=== PATIENT | female | born 1980 | race African-American/Black ===

== ENCOUNTER 2016-10-14 18:23 | Emergency (ER) | payer MEDICAID, OTHER ==
[~2016-10-14] VITALS: Ht 177.8 cm; Wt 73.5 kg
[~2016-10-14 18:23] MED LIST: MOTRIN800 MG PO; OMEPRAZOLE DR20 M1 PO; PENICILLIN PO; TRAMADOL50 MG PO; ZOFRAN ODT4 MG PO
[2016-10-14 18:55] VITALS: BP 111/69
--- NOTE | 2016-10-14 19:35 | NUR ---
36 Y/O F W/C/O MOUTH ABCESS X TODAY. DENIES FEVER OR CHILLS.
[2016-10-14 20:11] VITALS: BP 104/64
--- NOTE | 2016-10-14 20:11 | NUR ---
Patient discharged with v/s stable. Written and verbal after care instructions given and explained. Patient alert, oriented and verbalized understanding of instructions. Ambulatory with steady gait. All questions addressed prior to discharge. ID band removed. Patient advised to follow up with PMD TOMORROW. Rx of NORCO, AUGMENTIN, AND IBUPROFEN given. Patient educated on indication of medication including possible reaction and side effects. Opportunity to ask questions provided and answered.
== END 2016-10-14 19:35 | disposition home or self-care (01) ==
LOC: MED 18:23
DX: K02.9 Dental caries, unspecified (principal); K04.7 Periapical abscess without sinus; F12.90 Cannabis use, unspecified, uncomplicated

== ENCOUNTER 2016-12-23 10:46 | Emergency (ER) | payer SELFPAY ==
--- NOTE | 2016-12-23 11:54 | NUR ---
PT CALLED AT THE LOBBY BUT DID NOT ANSWER, LEFT WITHOUT BEING SEEN, NOTIFIED
== END 2016-12-23 11:54 | disposition left against medical advice (07) ==
LOC: MED 10:46
DX: Z53.21 Procedure and treatment not carried out due to patient leaving prior to being seen by health care provider (principal)

== ENCOUNTER 2017-08-08 19:02 | Emergency (ER) | payer OTHER ==
[~2017-08-08] VITALS: Ht 177.8 cm; Wt 85.0 kg
[2017-08-08 19:31] VITALS: BP 101/61
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
--- NOTE | 2017-08-08 21:05 | NUR ---
Patient discharged with v/s stable. Written and verbal after care instructions given and explained. Patient alert, oriented and verbalized understanding of instructions. Ambulatory with steady gait. All questions addressed prior to discharge. ID band removed. Patient advised to follow up with PMD. Rx of IBUPOFEN given. Patient educated on indication of medication including possible reaction and side effects. Opportunity to ask questions provided and answered.
[2017-08-08 21:14] VITALS: BP 102/75
== END 2017-08-08 21:05 | disposition home or self-care (01) ==
LOC: MED 19:02
DX: M25.562 Pain in left knee (principal)
CPT/HCPCS: 73562; 99284

== ENCOUNTER 2017-08-30 17:56 | Emergency (ER) | payer OTHER ==
[~2017-08-30] VITALS: Ht 177.8 cm; Wt 84.4 kg
[2017-08-30 18:03] VITALS: BP 106/55
--- NOTE | 2017-08-30 18:06 | NUR ---
PT AMBULATED TO CHAIR D.
--- NOTE | 2017-08-30 18:09 | NUR ---
37F BIB SELF C/O INTERMITTENT LEFT KNEE PAIN, SHARP, NON-RADIATING, 8/10 X 6 MONTHS; PT STATES NO TRAUMA OR INJURY TO SITE AT THIS TIME; NO SWELLING NOTED TO SITE AT THIS TIME; LEFT POPLITEAL PULSE 3+, LEFT CAP REFILL < 2 SECONDS, NO LOSS OF SENSATION TO LEFT LEG AT THIS TIME; PT AA&OX4, BL LUNG SOUNDS CLEAR, RR EVEN/UNLABORED, SKIN IS WARM/DRY/INTACT WITH EVEN AND STEADY GAIT; PT RESTING IN CHAIR, POSITIONED FOR COMFORT; ER MD MADE AWARE OF STATUS. WILL CONTINUE TO MONITOR.
--- NOTE | 2017-08-30 19:08 | NUR ---
CARO HUBBARD DR. SECHRIST EVALUATING PT AT THIS TIME.
--- NOTE | 2017-08-30 19:08 | NUR ---
Pt report given to FARZANA CHAPA. Transfer of care at this time.
[2017-08-30 19:37] VITALS: BP 109/75
--- NOTE | 2017-08-30 19:37 | NUR ---
Patient discharged with v/s stable. Written and verbal after care instructions given and explained. Patient alert, oriented and verbalized understanding of instructions. Ambulatory with steady gait. All questions addressed prior to discharge. ID band removed. Patient advised to follow up with PMD. Rx of MOTRIN 600MG given. Patient educated on indication of medication including possible reaction and side effects. Opportunity to ask questions provided and answered.
== END 2017-08-30 19:37 | disposition home or self-care (01) ==
LOC: MED 17:56
DX: M17.12 Unilateral primary osteoarthritis, left knee (principal); F12.10 Cannabis abuse, uncomplicated
CPT/HCPCS: 99283

== ENCOUNTER 2017-09-13 04:35 | Emergency (ER) | payer OTHER ==
[~2017-09-13] VITALS: Ht 177.8 cm; Wt 86.2 kg
[2017-09-13 04:42] VITALS: BP 111/71
--- NOTE | 2017-09-13 04:47 | NUR ---
PT BIB SELF C/O LT LOWER JAW/TOOTHACHE X OFF AND ON X 1MTH. PT DENIES N/V/D; SKIN IS INTACT, PINK/WARM/DRY; AAOX4, PERRL, WITH EVEN AND STEADY GAIT; LUNGS CLEAR BL, BREATHING UNLABORED; HR EVEN AND REGULAR, BL PERIPHERAL PULSES PRESENT; BS ACTIVE X4, NO TENDERNESS TO PALPATION. PT DENIES ANY FEVER, CP, SOB, OR COUGH AT THIS TIME; PT STATES 8/10 PAIN AT THIS TIME; VSS; PATIENT POSITIONED FOR COMFORT; HOB ELEVATED; BEDRAILS UP X2; BED DOWN.
--- NOTE | 2017-09-13 04:51 | NUR ---
ER MD DR PRECIADO AT BEDSIDE
[2017-09-13 05:06] VITALS: BP 121/75
--- NOTE | 2017-09-13 05:06 | NUR ---
Patient discharged with v/s stable. Written and verbal after care instructions given and explained. Patient alert, oriented and verbalized understanding of instructions. Ambulatory with steady gait. All questions addressed prior to discharge. ID band removed. Patient advised to follow up with PMD. Rx of NAPROSYN 500MG, PENICILLIN VK 500MG AND NORCO 4MG-325MG given. Patient educated on indication of medication including possible reaction and side effects. Opportunity to ask questions provided and answered.
== END 2017-09-13 05:06 | disposition home or self-care (01) ==
LOC: MED 04:35
DX: K08.89 Other specified disorders of teeth and supporting structures (principal); F17.210 Nicotine dependence, cigarettes, uncomplicated
CPT/HCPCS: 99283

== ENCOUNTER 2018-01-10 18:16 | Emergency (ER) | payer SELFPAY ==
[~2018-01-10] VITALS: Ht 177.8 cm; Wt 81.6 kg
[2018-01-10 18:21] VITALS: BP 110/72
--- NOTE | 2018-01-10 18:21 | NUR ---
PT AMBULATES TO BED 12
--- NOTE | 2018-01-10 18:31 | NUR ---
PATIENT PRESENTS TO ED WITH left lower molar pain . PT STATES . DENIES N/V/D; SKIN IS PINK/WARM/DRY; AAOX4 WITH EVEN AND STEADY GAIT; LUNGS CLEAR BL; HR EVEN AND REGULAR; PT DENIES ANY FEVER, CP, SOB, OR COUGH AT THIS TIME; PATIENT STATES PAIN OF 9/10 AT THIS TIME; VSS; PATIENT POSITIONED FOR COMFORT; HOB ELEVATED; BEDRAILS UP X2; BED DOWN. ER MD MADE AWARE OF PT STATUS.
--- NOTE | 2018-01-10 19:03 | NUR ---
RECEIVED REPORT FROM TIFFANIE YANES.
--- NOTE | 2018-01-10 19:05 | NUR ---
WENT TO SEE PT UPON START OF SHIFT. PT CALLED X3. PT NOTED TO HAVE LEFT WITHOUT BEING SEEN.
--- NOTE | 2018-01-10 19:05 | NUR ---
PATIENT LEFT WITHOUT BEING SEEN BY DR. DR COUGHLIN. NO FURTHER CARE PROVIDED FOR PATIENT.
== END 2018-01-10 19:05 | disposition left against medical advice (07) ==
LOC: MED 18:16
DX: Z53.21 Procedure and treatment not carried out due to patient leaving prior to being seen by health care provider (principal)

== ENCOUNTER 2018-10-20 13:36 | Emergency (ER) | payer OTHER ==
[~2018-10-20] VITALS: Ht 177.8 cm; Wt 77.8 kg
[2018-10-20 13:50] VITALS: BP 117/64
--- NOTE | 2018-10-20 13:55 | NUR ---
PT BIB SELF C/O PAINFUL ABSCESS IN BETWEEN BREASTS X 4 DAYS. TENDER TO TOUCH. SMALL PINK WOUND NOTED. PAIN 3. ER MD AT BEDSIDE FOR EVAL. HX: ANEMIA RX: IRON
[2018-10-20 14:25] VITALS: BP 111/62
--- NOTE | 2018-10-20 14:29 | NUR ---
Patient discharged with v/s stable. Written and verbal after care instructions given and explained. Patient alert, oriented and verbalized understanding of instructions. Ambulatory with steady gait. All questions addressed prior to discharge. ID band removed. Patient advised to follow up with PMD. Rx of IBU,KEFLEX given. Patient educated on indication of medication including possible reaction and side effects. Opportunity to ask questions provided and answered.
== END 2018-10-20 14:29 | disposition home or self-care (01) ==
LOC: MED 13:36
DX: N61.1 Abscess of the breast and nipple (principal)
CPT/HCPCS: 99283

== ENCOUNTER 2018-11-12 08:13 | Emergency (ER) | payer OTHER ==
[~2018-11-12] VITALS: Ht 177.8 cm; Wt 77.1 kg
[2018-11-12 08:22] VITALS: BP 117/89
--- NOTE | 2018-11-12 08:22 | NUR ---
PT TAKEN TO BED 8.
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
[2018-11-12] MEDS ORDERED: KETOROLAC 30 MG/ML VIAL IM ONE (08:55)
--- NOTE | 2018-11-12 09:35 | NUR ---
PT STAYING IN BED, STATED PAIN RELIEVED.
[2018-11-12 10:18] VITALS: BP 115/78
--- NOTE | 2018-11-12 10:19 | NUR ---
Patient discharged with v/s stable. Written and verbal after care instructions given and explained. Patient alert, oriented and verbalized understanding of instructions. Ambulatory with CRUTCHES, OFFERED PT WHEELCHAIR, PT REFUSED. All questions addressed prior to discharge. ID band removed. Patient advised to follow up with PMD. Rx of NAPROSYN given. Patient educated on indication of medication including possible reaction and side effects. Opportunity to ask questions provided and answered.
== END 2018-11-12 10:19 | disposition home or self-care (01) ==
LOC: MED 08:13
DX: S83.91XA Sprain of unspecified site of right knee, initial encounter (principal); V49.09XA Driver injured in collision with other motor vehicles in nontraffic accident, initial encounter; Y93.89 Activity, other specified; Y92.410 Unspecified street and highway as the place of occurrence of the external cause; Y99.8 Other external cause status
CPT/HCPCS: 29505; 73562; 81025; 96372; 99283; J1885; 81002; 96374

== ENCOUNTER 2019-03-30 09:39 | Emergency (ER) | payer OTHER ==
[~2019-03-30] VITALS: Ht 177.8 cm; Wt 88.0 kg
[2019-03-30 09:42] VITALS: BP 105/64
--- NOTE | 2019-03-30 09:48 | NUR ---
Patient ambulated to bed 7. RN evaluating patient at bedside.
--- NOTE | 2019-03-30 09:56 | NUR ---
PT BROKE TOOTH ON LT LOWER JAW X 2 DAYS S/P EATING AN ONION RING. 01/16 THRBING PAIN RADIATING TO LT ANTERIOR NECK AT 01/16, TX W/ IBUPROFEN W/ NO RELIEF. + SWELLING, - FEVER, -N/V. PT STATES SHE FEELS AN ABSCESS IN GUM LINE ON LT LOWER JAW. VSS. ER TO SEE PT. MEDHX:DENIES RX:DENIES
--- NOTE | 2019-03-30 10:10 | NUR ---
Dr. Mendoza evaluating patient at bedside.
--- NOTE | 2019-03-30 10:18 | NUR ---
Patient discharged with v/s stable. Written and verbal after care instructions given and explained. Patient alert, oriented and verbalized understanding of instructions. Ambulatory with steady gait. All questions addressed prior to discharge. ID band removed. Patient advised to follow up with PMD. Rx of PENICILLIN, NAPROSYN, NORCO given. Patient educated on indication of medication including possible reaction and side effects. Opportunity to ask questions provided and answered.
== END 2019-03-30 10:18 | disposition home or self-care (01) ==
LOC: MED 09:39
DX: K04.7 Periapical abscess without sinus (principal); F17.200 Nicotine dependence, unspecified, uncomplicated; F12.90 Cannabis use, unspecified, uncomplicated; Z98.890 Other specified postprocedural states
CPT/HCPCS: 99283

== ENCOUNTER 2019-07-22 17:43 | Emergency (ER) | payer OTHER ==
[~2019-07-22] VITALS: Ht 177.8 cm; Wt 92.1 kg
[2019-07-22 18:00] VITALS: BP 103/69
[2019-07-22] MEDS ORDERED: ACETAMINOPHEN EXTRA STRENGTH 500 MG TAB PO ONE (19:30)
--- NOTE | 2019-07-22 19:35 | NUR ---
C/O BILAT KNEE/ELBOW PAIN. PT REPORTS "TWISTING HER R KNEE YESTERDAY, BUT ASIDE FROM THAT SHE ALWAYS HAS JOINT PAIN 12/16. NO OBVIOUS DEFORMITY NOTED. CMS INTACT. PT SITTING IN CHAIR B AT THIS TIME.
[2019-07-22] MEDS ORDERED: KETOROLAC 60 MG/2 ML VIAL IM ONE ×2 (19:40→20:05)
--- NOTE | 2019-07-22 19:40 | NUR ---
PA TAYLOR EVALUATING PT AT THIS TIME
--- NOTE | 2019-07-22 19:48 | NUR ---
PT RETURN FROM RAD
--- NOTE | 2019-07-22 20:28 | NUR ---
PT DID NOT WANT ZANA WRAP
[2019-07-22 20:30] VITALS: BP 103/69
== END 2019-07-22 20:30 | disposition home or self-care (01) ==
LOC: MED 17:43
DX: G89.29 Other chronic pain (principal); M25.561 Pain in right knee
CPT/HCPCS: 73562; 96372; 99283; J1885

== ENCOUNTER 2019-08-09 16:28 | Emergency (ER) | payer MEDICAID, OTHER ==
[~2019-08-09] VITALS: Ht 177.8 cm; Wt 90.7 kg
[2019-08-09 16:38] VITALS: BP 101/73
--- NOTE | 2019-08-09 16:42 | NUR ---
TRIAGE COMPLETE. VSS. TO LOBBY AWAITNG BED IN ED.
--- NOTE | 2019-08-09 17:47 | NUR ---
39 Y/O PRESENTS TO ER WITH LEFT FOOT TOE PAIN, AT THE PINKY TOE. PT REPORTS STUBBING TOE TWO DAYS AGO AND STUBBING IT AGAIN YESTERDAY. PT HAS BEEN MANAGING PAIN WITH TYLENOL AT HOME BUT PAIN IS STILL PRESENT. MILD SWELLING NOTED, SKIN INTACT. NO OBVIOUS DEFORMITY NOTED. ROM IN TACT LOWER BILAT EXT, CMS+. NO PMH NKA
[2019-08-09] MEDS ORDERED: IBUPROFEN 600 MG TAB PO ONE (19:05)
[2019-08-09 19:50] VITALS: BP 101/73
--- NOTE | 2019-08-09 19:50 | NUR ---
Patient discharged with v/s stable. Written and verbal after care instructions given and explained. Patient alert, oriented and verbalized understanding of instructions. Ambulatory with steady gait. All questions addressed prior to discharge. ID band removed. Patient advised to follow up with PMD. Rx of IBUPROFEN WAS given. Patient educated on indication of medication including possible reaction and side effects. Opportunity to ask questions provided and answered. SPLINT WAS PLACED AND PT TOLERATED WELL.
== END 2019-08-09 19:50 | disposition home or self-care (01) ==
LOC: MED 16:28
DX: S92.522A Displaced fracture of middle phalanx of left lesser toe(s), initial encounter for closed fracture (principal); X58.XXXA Exposure to other specified factors, initial encounter; Y93.89 Activity, other specified; Y92.89 Other specified places as the place of occurrence of the external cause; Y99.8 Other external cause status
CPT/HCPCS: 73660; 99283

== ENCOUNTER 2019-11-26 05:59 | Emergency (ER) | payer MEDICAID, OTHER ==
[~2019-11-26] VITALS: Ht 177.8 cm; Wt 89.8 kg
[2019-11-26 06:04] VITALS: BP 109/75
--- NOTE | 2019-11-26 06:11 | NUR ---
PT TAKEN TO BED 12 VIA W/C
[2019-11-26] MEDS ORDERED: HYDROcodone/APAP 5/325 MG 1 TAB TAB PO ONE (06:20)
--- NOTE | 2019-11-26 06:20 | NUR ---
Dr. Mabry examining patient.
--- NOTE | 2019-11-26 06:30 | NUR ---
X-RAY AT BEDSIDE
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
--- NOTE | 2019-11-26 07:07 | NUR ---
REPORT GIVEN TO VEE YANES
[2019-11-26 07:24] VITALS: BP 109/75
--- NOTE | 2019-11-26 07:24 | NUR ---
Patient discharged with v/s stable. Written and verbal after care instructions given and explained. Patient alert, oriented and verbalized understanding of instructions. Ambulatory with steady gait. All questions addressed prior to discharge. ID band removed. Patient advised to follow up with PMD. Rx of NORCO, LIDODERM given. Patient educated on indication of medication including possible reaction and side effects. Opportunity to ask questions provided and answered.
== END 2019-11-26 07:24 | disposition home or self-care (01) ==
LOC: MED 05:59
DX: M25.571 Pain in right ankle and joints of right foot (principal)
CPT/HCPCS: 73610; 99283; Q0092

== ENCOUNTER 2021-01-03 12:11 | Emergency (ER) | payer OTHER ==
[~2021-01-03] VITALS: Ht 177.8 cm; Wt 93.4 kg
[2021-01-03 12:18] VITALS: BP 128/101
--- NOTE | 2021-01-03 12:25 | NUR ---
pt ambulated to bed 07.
--- NOTE | 2021-01-03 12:26 | NUR ---
Dr. Perez at the bedside evaluating patient.
--- NOTE | 2021-01-03 12:32 | NUR ---
Radiology at the bedside
[2021-01-03] MEDS ORDERED: KETOROLAC 30 MG/ML VIAL IM ONE (12:35)
--- NOTE | 2021-01-03 12:46 | NUR ---
40 Y/O F BIB SELF FROM HOME, C/O SHARP (R) FOOT PAIN AFTER HITTING FOOT AGAINST WALL TODAY. PAIN IS 10/10. PT STATES SHE HAS NO FEELING IN HER 5TH DIGIT R FOOT, PAIN WITH AMBULATION. PMH: DENIES NKA MED: IBUPROFEN 800MG NO RELIEF THIS MORNING.
[2021-01-03] MEDS ORDERED: IBUP-2230 PO (13:45)
[2021-01-03 14:08] VITALS: BP 128/101
[2021-01-04] MEDS ORDERED: ACET-8386 PO (00:52)
== END 2021-01-03 14:08 | disposition home or self-care (01) ==
LOC: MED 12:11
DX: S92.591A Other fracture of right lesser toe(s), initial encounter for closed fracture (principal); Z79.899 Other long term (current) drug therapy; X58.XXXA Exposure to other specified factors, initial encounter; Y93.89 Activity, other specified; Y92.89 Other specified places as the place of occurrence of the external cause; Y99.8 Other external cause status
CPT/HCPCS: 73660; 96372; 99283; J1885

== ENCOUNTER 2021-01-03 23:15 | Emergency (ER) | payer OTHER ==
[~2021-01-03] VITALS: Ht 177.8 cm; Wt 93.0 kg
[~2021-01-03 23:15] MED LIST changes: +IBUP-2230 PO; -MOTRIN800 MG PO; -OMEPRAZOLE DR20 M1 PO; -PENICILLIN PO; -TRAMADOL50 MG PO; -ZOFRAN ODT4 MG PO
[2021-01-03 23:33] VITALS: BP 135/88
--- NOTE | 2021-01-03 23:37 | NUR ---
PT TAKEN TO BED 3
[2021-01-03] MEDS ORDERED: KETOROLAC 60 MG/2 ML VIAL IM ONE (23:45)
--- NOTE | 2021-01-03 23:45 | NUR ---
RECEIVED IN BED 3 WITH C/O RIGHT 5TH TOE PAIN AFTER RUNNING INTO WALL, BARE FOTTED THIS AM. WAS SEEN HERE EARLIER TODAY AND WAS GIVEN MOTRIN RX. "THE PAIN MED ISN'T WORKING" PMH : NONE NKDA
[2021-01-03 23:59] VITALS: BP 128/74
--- NOTE | 2021-01-04 00:43 | NUR ---
Dr. Huggins examining patient.
[2021-01-04] MEDS ORDERED: ACET-8386 PO (00:52)
--- NOTE | 2021-01-04 00:58 | NUR ---
Patient discharged with v/s stable. TOE CAMPOS TAPED AND CAST SHOE IN PLACE Written and verbal after care instructions given and explained. Patient verbalized understanding. Ambulatory with steady gait. All questions addressed prior to discharge. Advised to follow up with PMD.
== END 2021-01-04 00:58 | disposition home or self-care (01) ==
LOC: MED 23:15
DX: S92.502A Displaced unspecified fracture of left lesser toe(s), initial encounter for closed fracture (principal); F12.90 Cannabis use, unspecified, uncomplicated; Z79.899 Other long term (current) drug therapy; Z98.890 Other specified postprocedural states; W22.01XA Walked into wall, initial encounter; Y93.89 Activity, other specified; Y92.89 Other specified places as the place of occurrence of the external cause; Y99.8 Other external cause status
CPT/HCPCS: 96372; 99283; J1885

== ENCOUNTER 2021-03-25 13:18 | Emergency (ER) | payer OTHER ==
[~2021-03-25] VITALS: Ht 180.3 cm; Wt 90.0 kg
[~2021-03-25 13:18] MED LIST changes: +ACET-8386 PO
[2021-03-25 13:40] VITALS: BP 158/94
--- NOTE | 2021-03-25 13:46 | NUR ---
PT AMB TO ER BED 12, UA CUP GIVEN
--- NOTE | 2021-03-25 13:55 | NUR ---
40 Y/O FEMALE C/O LT UPPER TOOTHACHE 03/18 DESCRIBES ACHE WITH N/V X 3 DAYS. PT TOOK MOMS ANTIBIOTICS & NARCOTICS BUT VOMITED THEM UP. DENIES FEVER/CHILLS. DENIES PMH NKA
[2021-03-25] MEDS ORDERED: HYDROcodone/APAP 5/325 MG 1 TAB TAB PO ONE (14:00)
--- NOTE | 2021-03-25 14:03 | NUR ---
PO PAIN MEDS GIVEN-NADR AT THIS TIME. ER/PA AT BEDSIDE FOR EVAL
[2021-03-25] MEDS ORDERED: AMOX-1000 PO (14:32)
[2021-03-25] MEDS ORDERED: ACET-8386 PO (14:32)
[2021-03-25 14:50] VITALS: BP 146/87
--- NOTE | 2021-03-25 14:50 | NUR ---
Patient discharged with v/s stable. Written and verbal after care instructions given and explained. Patient alert, oriented and verbalized understanding of instructions. Ambulatory with steady gait. All questions addressed prior to discharge. ID band removed. Patient advised to follow up with PMD. Rx of BACTRIM AND NORCO given. Patient educated on indication of medication including possible reaction and side effects. Opportunity to ask questions provided and answered.
== END 2021-03-25 14:50 | disposition home or self-care (01) ==
LOC: MED 13:18
DX: K08.89 Other specified disorders of teeth and supporting structures (principal); Z79.899 Other long term (current) drug therapy; Z98.890 Other specified postprocedural states
CPT/HCPCS: 81002; 81025; 99283

== ENCOUNTER 2021-06-05 11:09 | Emergency (ER) | payer OTHER ==
[~2021-06-05] VITALS: Ht 177.8 cm; Wt 91.6 kg
[~2021-06-05 11:09] MED LIST changes: +AMOX-1000 PO
[2021-06-05 11:16] VITALS: BP 137/82
--- NOTE | 2021-06-05 11:23 | NUR ---
pt swabbed for joão and flu
[2021-06-05] MEDS ORDERED: PROM473S5 PO (12:16)
[2021-06-05] MEDS ORDERED: ACET-10509 PO (12:16)
--- NOTE | 2021-06-05 14:06 | NUR ---
NO NURISNG INTERVENTIONS PROVIDED
[2021-06-05 14:07] VITALS: BP 137/82
--- NOTE | 2021-06-05 14:07 | NUR ---
Patient discharged with v/s stable. Written and verbal after care instructions ABOUT UPPER RESPIRATORY INFECTION AND COVID-19 given and explained. Patient alert, oriented and verbalized understanding of instructions. Ambulatory with steady gait. All questions addressed prior to discharge. ID band removed. Patient advised to follow up with PMD. Rx of TYLENOL EXTRA STRENGTH AND PROMETHAZINE given. Patient educated on indication of medication including possible reaction and side effects. Opportunity to ask questions provided and answered.
== END 2021-06-05 14:07 | disposition home or self-care (01) ==
LOC: MED 11:09
DX: U07.1 COVID-19 (principal)
CPT/HCPCS: 87804; 99283

== ENCOUNTER 2021-10-04 22:47 | Emergency (ER) | payer OTHER ==
[~2021-10-04] VITALS: Ht 177.8 cm; Wt 94.3 kg
[~2021-10-04 22:47] MED LIST changes: +ACET-10509 PO; +PROM473S5 PO
[2021-10-04 22:57] VITALS: BP 110/77
--- NOTE | 2021-10-04 23:14 | NUR ---
Dr. Vo at triage to exam patient.
[2021-10-04] MEDS ORDERED: PRED20TA5 PO (23:39)
[2021-10-04] MEDS ORDERED: AMOX-999 PO (23:39)
[2021-10-04 23:44] VITALS: BP 110/77
--- NOTE | 2021-10-04 23:44 | NUR ---
Patient discharged with v/s stable. Written and verbal after care instructions given and explained. Patient alert, oriented and verbalized understanding of instructions. Ambulatory with steady gait. All questions addressed prior to discharge. ID band removed. Patient advised to follow up with PMD. Rx of Augmentin and Predisone given. Patient educated on indication of medication including possible reaction and side effects. Opportunity to ask questions provided and answered.
== END 2021-10-04 23:44 | disposition home or self-care (01) ==
LOC: MED 22:47
DX: L08.9 Local infection of the skin and subcutaneous tissue, unspecified (principal); R09.89 Other specified symptoms and signs involving the circulatory and respiratory systems; R05.9 Cough, unspecified; R51.9 Headache, unspecified; Z79.899 Other long term (current) drug therapy
CPT/HCPCS: 99283

== ENCOUNTER 2021-10-07 15:59 | Emergency (ER) | payer OTHER ==
[~2021-10-07] VITALS: Ht 177.8 cm; Wt 91.8 kg
[~2021-10-07 15:59] MED LIST changes: +AMOX-999 PO; +PRED20TA5 PO
[2021-10-07 16:35] VITALS: BP 110/77
--- NOTE | 2021-10-07 16:41 | NUR ---
PT AMB TO BED 6.
--- NOTE | 2021-10-07 16:48 | NUR ---
DR YOUNG AT BEDSIDE EVALUATING PATIENT
--- NOTE | 2021-10-07 17:13 | NUR ---
Note monalisa in EDM - 10/07/21 at 1753 by JANESSA Patient discharged with v/s stable. Written and verbal after care instructions given and explained. Patient alert, oriented and verbalized understanding of instructions. Ambulatory with steady gait. All questions addressed prior to discharge. ID band removed. Patient advised to follow up with PMD. NO Rx given. Patient educated on indication of medication including possible reaction and side effects. Opportunity to ask questions provided and answered.
--- NOTE | 2021-10-07 17:53 | NUR ---
LAB AT BEDSIDE.
--- NOTE | 2021-10-07 18:01 | NUR ---
ULTRASOUND AT BEDSIDE
[2021-10-07 18:08] LABS: BASOPHILS % (AUTO) 0.3 % (0.0-2.0); EOSINOPHILS % (AUTO) 0.3 % (0.0-4.0); HEMATOCRIT 30.1 % (36-48); HEMOGLOBIN 9.3 g/dL (12.0-16.0); LYMPHOCYTES % (AUTO) 28.4 % (20.5-51.1); MEAN CORPUSCULAR HEMOGLOBIN 25 pg (27-31); MEAN CORPUSCULAR HGB CONC 31 g/dL (33-37); MEAN CORPUSCULAR VOLUME 79.8 fL (80-94); MONOCYTES # (AUTO) 0.8 K/uL (0.8-1.0); MONOCYTES % (AUTO) 7.2 % (1.7-9.3); NEUTROPHILS # (AUTO) 6.8 K/uL (1.8-7.7); NEUTROPHILS % (AUTO) 63.8 % (42.2-75.2); PLATELET COUNT (AUTO) 493 K/uL (140-450); RED BLOOD CELL COUNT(AUTO) 3.77 MIL/uL (4.20-5.40); RED CELL DISTRIBUTION WIDTH 13.1 % (11.6-13.7); WHITE BLOOD COUNT (AUTO) 10.6 K/uL (4.8-10.8)
[2021-10-07 18:23] LABS: APPEARANCE,URINE CLEAR (CLEAR); BILIRUBIN,URINE NEGATIVE (NEGATIVE); BLOOD, URINE 3+ (NEGATIVE); COLOR,URINE YELLOW (YELLOW); LEUKOCYTE ESTERASE ,URINE NEGATIVE (NEGATIVE); NITRITE, URINE NEGATIVE (NEGATIVE); UGLUCOSE NEGATIVE (NEGATIVE)
[2021-10-07 18:28] LABS: ANION GAP 10.1 (8-16); CARBON DIOXIDE 27.3 mmol/L (21-32); CREATININE 0.8 mg/dL (0.6-1.3); POTASSIUM 3.4 mmol/L (3.5-5.1)
[2021-10-07 18:30] LABS: PROTHROMBIN TIME 10.3 secs (10.8-13.4)
[2021-10-07 18:38] LABS: RBC,URINE >100 /HPF (0-5); WBC,URINE NONE SEEN /HPF (0-5)
--- NOTE | 2021-10-07 19:30 | NUR ---
Pt report given to DIMITRIS BIRD. Transfer of care at this time.
--- NOTE | 2021-10-07 20:00 | NUR ---
AWAITING [place] PAPERWORK
[2021-10-07 20:15] VITALS: BP 134/85
--- NOTE | 2021-10-07 20:15 | NUR ---
Patient discharged with v/s stable. Written and verbal after care instructions given and explained. Patient verbalized understanding. Ambulatory with steady gait. All questions addressed prior to discharge. Advised to follow up with PMD.
--- NOTE | 2021-10-08 02:39 | NUR ---
The patient's care was reviewed and supervised by Sharon Broussard RN. Chart checked.
== END 2021-10-07 20:15 | disposition home or self-care (01) ==
LOC: MED 15:59
DX: N93.9 Abnormal uterine and vaginal bleeding, unspecified (principal); R10.30 Lower abdominal pain, unspecified; Z79.899 Other long term (current) drug therapy
CPT/HCPCS: 36415; 76830; 80048; 81001; 81025; 85025; 85610; 85730; 86886; 86900; 86901; 99285; Q0092; 99284

== ENCOUNTER 2021-10-13 09:09 | Emergency (ER) | payer OTHER ==
[~2021-10-13] VITALS: Ht 180.3 cm; Wt 92.1 kg
[2021-10-13 09:14] VITALS: BP 134/82
--- NOTE | 2021-10-13 09:20 | NUR ---
41 Y/O FEMALE C/O INCREASED VAGINAL BLEEDING " PALM-SIZE" CLOTS AND INCREASED BODY WEAKNESS X1WK. PAIN RATED 8/10, NON-RADIATING. PT STATES SHE IS SATURATING 2 PADS/HR. PT STATES SHE HAS ALSO HAD INCREASED BODY WEAKNESS. PT WAS SEEN HERE 1WK AGO, SYMPTOMS ACCORDING TO HER HAVE WORSENED. LMP 09/27/21. PT IS ALERT AND ORIENTED X4. BP 134/82, O2 Sat 100 RA, P 101, R 18. BED LOCKED IN LOWEST POSITION, BED RAIL X1. PMH: ANEMIA MEDS:IRON Sx: C-sections NKDA
[2021-10-13] MEDS ORDERED: KETOROLAC 15 MG/ML VIAL IVP ONE (10:30)
--- NOTE | 2021-10-13 10:50 | NUR ---
LAB AT PT BEDSIDE
--- NOTE | 2021-10-13 11:13 | NUR ---
US AT PT BEDSIDE
[2021-10-13 11:18] LABS: BASOPHILS % (AUTO) 0.3 % (0.0-2.0); EOSINOPHILS % (AUTO) 0.3 % (0.0-4.0); HEMATOCRIT 28.6 % (36-48); HEMOGLOBIN 8.9 g/dL (12.0-16.0); LYMPHOCYTES # (AUTO) 4.1 K/uL (2.5-16.5); LYMPHOCYTES % (AUTO) 33.5 % (20.5-51.1); MEAN CORPUSCULAR HEMOGLOBIN 25 pg (27-31); MEAN CORPUSCULAR HGB CONC 31 g/dL (33-37); MONOCYTES # (AUTO) 0.8 K/uL (0.8-1.0); MONOCYTES % (AUTO) 6.2 % (1.7-9.3); NEUTROPHILS # (AUTO) 7.3 K/uL (1.8-7.7); NEUTROPHILS % (AUTO) 59.7 % (42.2-75.2); PLATELET COUNT (AUTO) 419 K/uL (140-450); RED BLOOD CELL COUNT(AUTO) 3.53 MIL/uL (4.20-5.40); WHITE BLOOD COUNT (AUTO) 12.3 K/uL (4.8-10.8)
[2021-10-13 11:21] LABS: ALBUMIN 3.2 g/dL (3.4-5.0); ANION GAP 5.1 (8-16); CARBON DIOXIDE 29.5 mmol/L (21-32); CREATININE 0.6 mg/dL (0.6-1.3); POTASSIUM 3.6 mmol/L (3.5-5.1); TOTAL BILIRUBIN 0.1 mg/dL (0.0-1.0)
[2021-10-13] MEDS ORDERED: MEDR10TA PO (13:46)
[2021-10-13 14:06] LABS: APPEARANCE,URINE CLOUDY (CLEAR); BILIRUBIN,URINE NEGATIVE (NEGATIVE); BLOOD, URINE 3+ (NEGATIVE); COLOR,URINE RED (YELLOW); LEUKOCYTE ESTERASE ,URINE NEGATIVE (NEGATIVE); NITRITE, URINE POSITIVE (NEGATIVE); UGLUCOSE NEGATIVE (NEGATIVE)
[2021-10-13 14:11] LABS: RBC,URINE >100 /HPF (0-5); WBC,URINE 0 /HPF (0-5)
[2021-10-13] MEDS ORDERED: CEPH-588 PO (14:19)
[2021-10-13 14:35] VITALS: BP 134/58
--- NOTE | 2021-10-13 14:37 | NUR ---
Patient discharged with v/s stable. Written and verbal after care instructions given and explained. Patient alert, oriented and verbalized understanding of instructions. Ambulatory with steady gait. All questions addressed prior to discharge. ID band removed. Patient advised to follow up with PMD. Rx of KELFEX, PROVERA given. Patient educated on indication of medication including possible reaction and side effects. Opportunity to ask questions provided and answered.
== END 2021-10-13 14:37 | disposition home or self-care (01) ==
LOC: MED 09:09
DX: N93.9 Abnormal uterine and vaginal bleeding, unspecified (principal); N39.0 Urinary tract infection, site not specified; Z98.890 Other specified postprocedural states; Z79.2 Long term (current) use of antibiotics; Z79.899 Other long term (current) drug therapy; Z79.1 Long term (current) use of non-steroidal anti-inflammatories (NSAID); Z79.891 Long term (current) use of opiate analgesic
CPT/HCPCS: 36415; 76856; 80053; 81001; 81025; 85025; 96372; 96374; 99284; J1050; J1885; Q0092

== ENCOUNTER 2022-01-29 21:37 | Emergency (ER) | payer OTHER ==
[~2022-01-29] VITALS: Ht 177.8 cm; Wt 94.3 kg
[~2022-01-29 21:37] MED LIST changes: +CEPH-588 PO; +MEDR10TA PO
[2022-01-29 21:50] VITALS: BP 108/53
--- NOTE | 2022-01-29 22:31 | NUR ---
Patient taken to X-ray.
--- NOTE | 2022-01-29 23:02 | NUR ---
PT TAKEN TO BED 3
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
--- NOTE | 2022-01-29 23:28 | NUR ---
Dr. Bernabe examining patient.
[2022-01-29] MEDS ORDERED: oxyCODONE/APAP 5/325 MG 1 TAB TAB PO ONE (23:35)
[2022-01-30] MEDS ORDERED: ACET-503 PO (00:11)
[2022-01-30] MEDS ORDERED: IBUP-2213 PO (00:11)
[2022-01-30 00:23] VITALS: BP 110/64
--- NOTE | 2022-01-30 00:24 | NUR ---
Patient discharged with v/s stable. Written and verbal after care instructions given and explained. Patient alert, oriented and verbalized understanding of instructions. Ambulatory with steady gait. All questions addressed prior to discharge. ID band removed. Patient advised to follow up with PMD. Rx of IBUPROFEN AND ACETAMINOPHEN-COD#3 given. Patient educated on indication of medication including possible reaction and side effects. Opportunity to ask questions provided and answered. VSS, A/OOX4, AMBULATORY, UNLABORED BREATHING, AND CALM DEMEANOR.
== END 2022-01-30 00:24 | disposition home or self-care (01) ==
LOC: MED 21:37
DX: S92.512A Displaced fracture of proximal phalanx of left lesser toe(s), initial encounter for closed fracture (principal); Z79.899 Other long term (current) drug therapy; W23.0XXA Caught, crushed, jammed, or pinched between moving objects, initial encounter; Y93.89 Activity, other specified; Y92.89 Other specified places as the place of occurrence of the external cause; Y99.8 Other external cause status
CPT/HCPCS: 73660; 99283

== ENCOUNTER 2022-02-09 22:21 | Emergency (ER) | payer OTHER ==
[~2022-02-09] VITALS: Ht 177.8 cm; Wt 91.6 kg
[~2022-02-09 22:21] MED LIST changes: +ACET-503 PO; +IBUP-2213 PO
[2022-02-09 22:50] VITALS: BP 110/69
[2022-02-09] MEDS ORDERED: HYDROcodone/APAP 5/325 MG 1 TAB TAB PO ONE (23:25)
[2022-02-10] MEDS ORDERED: ACET-8386 PO (00:13)
[2022-02-10] MEDS ORDERED: NAPR-54 PO (00:13)
[2022-02-10 00:40] VITALS: BP 110/69
== END 2022-02-10 00:40 | disposition home or self-care (01) ==
LOC: MED 22:21
DX: S92.515A Nondisplaced fracture of proximal phalanx of left lesser toe(s), initial encounter for closed fracture (principal); Z79.1 Long term (current) use of non-steroidal anti-inflammatories (NSAID); Z79.891 Long term (current) use of opiate analgesic; Z79.2 Long term (current) use of antibiotics; Z79.899 Other long term (current) drug therapy; W22.8XXA Striking against or struck by other objects, initial encounter; Y92.89 Other specified places as the place of occurrence of the external cause; Y93.89 Activity, other specified; Y99.8 Other external cause status
CPT/HCPCS: 73660; 99285; Q0092

== ENCOUNTER 2022-05-06 09:03 | Emergency (ER) | payer OTHER ==
[~2022-05-06 09:03] MED LIST changes: +NAPR-54 PO
--- NOTE | 2022-05-06 09:33 | NUR ---
CALLED TO TRIAGE NO RESPONSE
--- NOTE | 2022-05-06 09:50 | NUR ---
CALLED TO TRIAGE NO RESPONSE
--- NOTE | 2022-05-06 10:20 | NUR ---
PATIENT LEFT WITHOUT BEING SEEN BY DR. PRECIADO. NO FURTHER CARE PROVIDED FOR PATIENT.
== END 2022-05-06 10:20 | disposition left against medical advice (07) ==
LOC: MED 09:03
DX: M25.569 Pain in unspecified knee (principal); Z53.21 Procedure and treatment not carried out due to patient leaving prior to being seen by health care provider

== ENCOUNTER 2022-09-21 02:13 | Emergency (ER) | payer OTHER ==
[~2022-09-21] VITALS: Ht 177.8 cm; Wt 94.8 kg
[~2022-09-21 02:13] MED LIST changes: -ACET-8386 PO; +ACET-8905 PO
[2022-09-21 02:21] VITALS: BP 104/69
--- NOTE | 2022-09-21 02:28 | NUR ---
Patient taken to bed 4.
[2022-09-21] MEDS ORDERED: HYDROcodone/APAP 5/325 MG 1 TAB TAB PO ONE (03:05)
[2022-09-21] MEDS ORDERED: ACET-8905 PO (04:26)
--- NOTE | 2022-09-21 04:40 | NUR ---
KNEE IMMOBILIZER TO RIGHT LE. PT ALSO DEMONSTRATES PROPER CRUTCH USE.
[2022-09-21 04:42] VITALS: BP 115/69
--- NOTE | 2022-09-21 04:42 | NUR ---
Patient discharged with v/s stable. Written and verbal after care instructions given and explained. Patient alert, oriented and verbalized understanding of instructions. Ambulatory with steady gait. All questions addressed prior to discharge. ID band removed. Patient advised to follow up with PMD. Rx of Bigelow given. Patient educated on indication of medication including possible reaction and side effects. Opportunity to ask questions provided and answered.
== END 2022-09-21 04:42 | disposition home or self-care (01) ==
LOC: MED 02:13
DX: M25.561 Pain in right knee (principal); Z79.899 Other long term (current) drug therapy
CPT/HCPCS: 29105; 73562; 99283

== ENCOUNTER 2022-12-14 22:11 | Emergency (ER) | payer OTHER ==
[~2022-12-14] VITALS: Ht 177.8 cm; Wt 95.3 kg
[2022-12-14 22:13] VITALS: BP 127/69; PULSE 92; RESP 16; TEMP 98; O2SAT 100
--- NOTE | 2022-12-14 22:13 | NUR ---
TO BED AMBULATORY
--- NOTE | 2022-12-14 22:15 | NUR ---
SEEN AND EXAMINED BY SHAWN
[2022-12-14] MEDS ORDERED: KETOROLAC 60 MG/2 ML VIAL IM ONE (22:25)
[2022-12-14] MEDS ORDERED: IBUPROFEN 600 MG TAB PO ONE (22:50)
[2022-12-15] MEDS ORDERED: MORPHINE SULFATE 4 MG/ML SYR IM ONE (00:25)
[2022-12-15 00:52] LABS: BASOPHILS % (AUTO) 0.5 % (0.0-2.0); EOSINOPHILS # (AUTO) 0.1 K/uL (0-0.4); EOSINOPHILS % (AUTO) 1.8 % (0.0-4.0); HEMATOCRIT 31.2 % (36-48); HEMOGLOBIN 9.7 g/dL (12.0-16.0); LYMPHOCYTES # (AUTO) 3.1 K/uL (2.5-16.5); LYMPHOCYTES % (AUTO) 37.4 % (20.5-51.1); MEAN CORPUSCULAR HEMOGLOBIN 25 pg (27-31); MEAN CORPUSCULAR HGB CONC 31 g/dL (33-37); MEAN CORPUSCULAR VOLUME 80.5 fL (80-94); MONOCYTES # (AUTO) 0.5 K/uL (0.8-1.0); MONOCYTES % (AUTO) 5.6 % (1.7-9.3); NEUTROPHILS # (AUTO) 4.5 K/uL (1.8-7.7); NEUTROPHILS % (AUTO) 54.7 % (42.2-75.2); PLATELET COUNT (AUTO) 298 K/uL (140-450); RED BLOOD CELL COUNT(AUTO) 3.87 MIL/uL (4.20-5.40); RED CELL DISTRIBUTION WIDTH 13.8 % (11.6-13.7); WHITE BLOOD COUNT (AUTO) 8.2 K/uL (4.8-10.8)
--- NOTE | 2022-12-15 01:10 | NUR ---
PT MEDICATED PAIN LEVEL 01/16. WILL REASSESS PAIN LEVEL
[2022-12-15 01:17] LABS: ALBUMIN 2.9 g/dL (3.4-5.0); ANION GAP 10.2 (8-16); CARBON DIOXIDE 27.3 mmol/L (21-32); CREATININE 0.7 mg/dL (0.6-1.3); POTASSIUM 3.5 mmol/L (3.5-5.1); TOTAL BILIRUBIN 0.1 mg/dL (0.0-1.0)
[2022-12-15] MEDS ORDERED: NAPR-54 PO (03:00)
[2022-12-15 03:09] VITALS: BP 127/69; PULSE 92; RESP 16; TEMP 98; O2SAT 100
== END 2022-12-15 03:09 | disposition home or self-care (01) ==
LOC: MED 22:11
DX: M13.872 Other specified arthritis, left ankle and foot (principal); M13.871 Other specified arthritis, right ankle and foot; Z79.899 Other long term (current) drug therapy
CPT/HCPCS: 36415; 80053; 83880; 84484; 84550; 85025; 85651; 96372; 99283; J1885; J2270

== ENCOUNTER 2022-12-21 03:07 | Emergency (ER) | payer OTHER ==
[~2022-12-21] VITALS: Ht 177.8 cm; Wt 96.2 kg
[2022-12-21 03:09] VITALS: BP 131/74; PULSE 97; RESP 16; TEMP 97.4; O2SAT 100
--- NOTE | 2022-12-21 03:18 | NUR ---
TO LOBBY FOLLOWING TRIAGE
--- NOTE | 2022-12-21 05:26 | NUR ---
CALLED PT NO ANSWER
--- NOTE | 2022-12-21 05:45 | NUR ---
CALLED TO COME TO ROOM, NO ANSWER, CALLED IN PARKING LOT, NO ANSWER. PT LWBS
== END 2022-12-21 05:45 | disposition left against medical advice (07) ==
LOC: MED 03:07
DX: M79.89 Other specified soft tissue disorders (principal); Z53.21 Procedure and treatment not carried out due to patient leaving prior to being seen by health care provider
CPT/HCPCS: 99281

== ENCOUNTER 2022-12-23 02:14 | Emergency (ER) | payer OTHER ==
[~2022-12-23] VITALS: Ht 177.8 cm; Wt 95.3 kg
[2022-12-23 02:20] VITALS: BP 115/77; PULSE 88; RESP 16; TEMP 97.9; O2SAT 99
--- NOTE | 2022-12-23 02:35 | NUR ---
pt went to the restroom
--- NOTE | 2022-12-23 02:35 | NUR ---
PT WENT TO BED 3
--- NOTE | 2022-12-23 04:05 | NUR ---
DR PRECIADO EXAMNING THE PATIENT
[2022-12-23] MEDS ORDERED: ACET-8905 PO (04:16)
[2022-12-23] MEDS ORDERED: FURO-572 PO (04:16)
[2022-12-23 04:28] VITALS: BP 115/77; PULSE 88; RESP 16; TEMP 97.9; O2SAT 99
--- NOTE | 2022-12-23 04:29 | NUR ---
Patient discharged with v/s stable. Written and verbal after care instructions given and explained. Patient alert, oriented and verbalized understanding of instructions. Ambulatory with steady gait. All questions addressed prior to discharge. ID band removed. Patient advised to follow up with PMD. Rx of LASIX AND HYDROCODONE given. Patient educated on indication of medication including possible reaction and side effects. Opportunity to ask questions provided and answered.
== END 2022-12-23 04:30 | disposition home or self-care (01) ==
LOC: MED 02:14
DX: R60.0 Localized edema (principal); Z79.899 Other long term (current) drug therapy
CPT/HCPCS: 81025; 99283

== ENCOUNTER 2023-01-11 23:32 | Emergency (ER) | payer OTHER ==
[~2023-01-11] VITALS: Ht 177.8 cm; Wt 90.7 kg
[~2023-01-11 23:32] MED LIST changes: +FURO-572 PO
[2023-01-11 23:35] VITALS: BP 106/54; PULSE 90; RESP 17; TEMP 97.6; O2SAT 99
[2023-01-12 00:53] LABS: BASOPHILS # (AUTO) 0.1 K/uL (0.00-0.22); BASOPHILS % (AUTO) 0.7 % (0.0-2.0); EOSINOPHILS # (AUTO) 0.2 K/uL (0-0.4); EOSINOPHILS % (AUTO) 1.8 % (0.0-4.0); HEMOGLOBIN 10.4 g/dL (12.0-16.0); LYMPHOCYTES # (AUTO) 3.5 K/uL (2.5-16.5); LYMPHOCYTES % (AUTO) 36.5 % (20.5-51.1); MEAN CORPUSCULAR HEMOGLOBIN 25 pg (27-31); MEAN CORPUSCULAR HGB CONC 31 g/dL (33-37); MEAN CORPUSCULAR VOLUME 80.4 fL (80-94); MONOCYTES # (AUTO) 0.7 K/uL (0.8-1.0); NEUTROPHILS # (AUTO) 5.2 K/uL (1.8-7.7); PLATELET COUNT (AUTO) 269 K/uL (140-450); RED BLOOD CELL COUNT(AUTO) 4.24 MIL/uL (4.20-5.40); RED CELL DISTRIBUTION WIDTH 13.9 % (11.6-13.7); WHITE BLOOD COUNT (AUTO) 9.7 K/uL (4.8-10.8)
[2023-01-12 01:11] LABS: ALBUMIN 2.7 g/dL (3.4-5.0); ANION GAP 10.1 (8-16); CALCIUM 7.8 mg/dL (8.5-10.1); CARBON DIOXIDE 27.4 mmol/L (21-32); CREATININE 0.8 mg/dL (0.6-1.3); POTASSIUM 3.5 mmol/L (3.5-5.1); TOTAL BILIRUBIN 0.2 mg/dL (0.0-1.0); TOTAL PROTEIN, SERUM 5.6 g/dL (6.4-8.2)
[2023-01-12] MEDS ORDERED: FURO-572 PO (01:28)
[2023-01-12] MEDS ORDERED: KETOROLAC 30 MG/ML VIAL IM ONE (01:30)
[2023-01-12 01:41] VITALS: TEMP 97.6
[2023-01-12 01:45] VITALS: BP 151/83; PULSE 76; RESP 16; O2SAT 96
== END 2023-01-12 01:45 | disposition home or self-care (01) ==
LOC: MED 23:32
DX: R60.9 Edema, unspecified (principal); Z79.899 Other long term (current) drug therapy
CPT/HCPCS: 36415; 80053; 83880; 84484; 85025; 93005; 96372; 99284; J1885

== ENCOUNTER 2023-03-07 04:30 | Emergency (ER) | payer OTHER ==
[~2023-03-07] VITALS: Ht 177.8 cm; Wt 93.0 kg
[2023-03-07 04:50] VITALS: BP 140/71; PULSE 80; RESP 17; O2SAT 98
[2023-03-07] MEDS ORDERED: KETOROLAC 30 MG/ML VIAL IM ONE (05:35)
== END 2023-03-07 06:40 | disposition left against medical advice (07) ==
LOC: MED 04:30
DX: K08.89 Other specified disorders of teeth and supporting structures (principal); Z53.21 Procedure and treatment not carried out due to patient leaving prior to being seen by health care provider
CPT/HCPCS: 99281

== ENCOUNTER 2023-03-11 10:31 | Emergency (ER) | payer OTHER ==
[~2023-03-11] VITALS: Ht 177.8 cm; Wt 94.9 kg
[2023-03-11 11:03] VITALS: BP 132/77; PULSE 63; RESP 20; TEMP 97.9; O2SAT 100
[2023-03-11] MEDS ORDERED: NAPR-54 PO (12:04)
[2023-03-11] MEDS ORDERED: PENI500T20 PO (12:04)
[2023-03-11] MEDS: MORPHINE SULFATE 4 MG/ML SYR IM ONE (12:41)
== END 2023-03-11 13:03 | disposition home or self-care (01) ==
LOC: MED 10:31
DX: K04.7 Periapical abscess without sinus (principal); Z79.899 Other long term (current) drug therapy
CPT/HCPCS: 96372; 99283; J2270

== ENCOUNTER 2023-09-20 20:14 | Emergency (ER) | payer OTHER ==
[~2023-09-20] VITALS: Ht 177.8 cm; Wt 90.7 kg
[~2023-09-20 20:14] MED LIST changes: +PENI500T20 PO
[2023-09-20 20:20] VITALS: BP 104/76; PULSE 104; RESP 18; TEMP 98.2; O2SAT 99
[2023-09-20] MEDS ORDERED: IBUP-2213 PO (20:51)
[2023-09-20] MEDS ORDERED: PRED20TA5 PO (20:51)
[2023-09-20] MEDS: KETOROLAC 60 MG/2 ML VIAL IM ONE (21:13)
== END 2023-09-20 21:20 | disposition home or self-care (01) ==
LOC: MED 20:14
DX: R05.9 Cough, unspecified (principal); R07.9 Chest pain, unspecified; M79.10 Myalgia, unspecified site; Z79.899 Other long term (current) drug therapy
CPT/HCPCS: 81025; 96372; 99283; J1885

== ENCOUNTER 2024-03-06 20:41 | Emergency (ER) | payer OTHER ==
[~2024-03-06 20:41] MED LIST changes: -ACET-10509 PO; +ACET500T99 PO; +NAPR-337 PO; -NAPR-54 PO
== END 2024-03-06 20:54 | disposition left against medical advice (07) ==
LOC: MED 20:41
DX: R06.02 Shortness of breath (principal); M54.9 Dorsalgia, unspecified; Z53.21 Procedure and treatment not carried out due to patient leaving prior to being seen by health care provider